=== PATIENT | male | born 1955 | race Caucasian/White ===

== ENCOUNTER 2019-12-22 11:21 | Emergency (ER) | payer OTHER ==
[~2019-12-22] VITALS: Ht 182.9 cm; Wt 98.0 kg
[2019-12-22] MEDS ORDERED: OXYCODONE HCL/ACETAMINOPHEN 5/325MG TABLET PO ONE (13:00)
[2019-12-22] MEDS ORDERED: TETANUS, DIPHTHERIA, PERTUSSIS VAC/PF 0.5ML (>7YR OLD) IM ONE (14:45)
[2019-12-22 17:14] VITALS: BP 128/69
== END 2019-12-22 17:31 | disposition short-term general hospital (02) ==
LOC: ER 11:35
DX: S00.01XA Abrasion of scalp, initial encounter (principal); S50.312A Abrasion of left elbow, initial encounter; E11.9 Type 2 diabetes mellitus without complications; V03.10XA Pedestrian on foot injured in collision with car, pick-up truck or van in traffic accident, initial encounter; Y93.89 Activity, other specified; Y92.488 Other paved roadways as the place of occurrence of the external cause
CPT/HCPCS: 73030; 73060; 73080; 73090; 73130; 73502; 90471; 90715; 99285